=== PATIENT | female | born 1980 | race Caucasian/White ===

== ENCOUNTER → 2017-07-30 21:37 | Outpatient (CLI) | payer BC ==
[2015-07-03 18:12] VITALS: BMI 27.6
[~2017-07-30 21:37] MED LIST: COUMADIN5 MG PO; HYDROCODON-ACE1 EAC7 PO; PRENATAL COMPLE1 TAB PO; VIVA DHA PRENAT1 CAP PO; XANAX0.5 MG PO
== END | disposition home or self-care (01) ==
LOC: D.MAMMO 14:15
DX: Z12.31 Encounter for screening mammogram for malignant neoplasm of breast (principal)

== ENCOUNTER 2018-08-04 08:00 | Outpatient (CLI) | payer BC ==
[2015-07-03 18:12] VITALS: BMI 27.6
== END 2018-08-04 09:00 | disposition home or self-care (01) ==
LOC: D.MAMMO 08:00
DX: Z12.31 Encounter for screening mammogram for malignant neoplasm of breast (principal)

== ENCOUNTER → 2018-12-11 15:04 | Outpatient (CLI) | payer BC | END | disposition home or self-care (01) | LOC: D.MRI 15:04 | DX: M25.572 Pain in left ankle and joints of left foot (principal) ==

== ENCOUNTER → 2019-08-20 11:00 | Outpatient (CLI) | payer BC ==
[2015-07-03 18:12] VITALS: BMI 27.6
== END | disposition home or self-care (01) ==
LOC: D.MAMMO 11:00
PROVIDERS: ATTEND Obstetrics & Gynecology
DX: Z12.31 Encounter for screening mammogram for malignant neoplasm of breast (principal)

== ENCOUNTER → 2020-04-04 13:06 | Outpatient (CLI) | payer BC ==
[2015-07-03 18:12] VITALS: BMI 27.6
== END | disposition home or self-care (01) ==
LOC: D.MRI 13:06
PROVIDERS: ATTEND Family Medicine
DX: M54.16 Radiculopathy, lumbar region (principal)